=== PATIENT | male | born 1945 | race Caucasian/White ===

== ENCOUNTER 2025-06-04 12:24 | Emergency (ER) | payer MEDICARE, OTHER, SELFPAY ==
[2025-06-04 12:31] VITALS: BP 138/71
[2025-06-04 12:32] VITALS: BP 138/71
[2025-06-04 12:35] VITALS: BMI 26.0
[2025-06-04 13:00] VITALS: BP 145/54
[2025-06-04 13:13] LABS: Hematocrit 46.6 % (39.0-52.0); Hemoglobin 15.7 g/dL (13.0-18.0); Mean Corp Hgb Conc. 33.7 g/dL (33.0-37.0); Mean Corpuscular Volume 93.8 fL (80.0-94.0); Nucleated Red Blood Cells % 0 % (-); Platelet Count 135 10^3/uL (130-400); Red Cell Dist. Width 13.9 % (11.5-14.5)
[2025-06-04 13:14] LABS: ALT (SGPT) 16 U/L (0-50); AST (SGOT) 20 U/L (17-59); Albumin 3.8 g/dl (3.5-5.0); Alkaline Phosphatase 68 U/L (38-126); Blood Urea Nitrogen 7 mg/dl (9-20); Calcium 9.0 mg/dl (8.4-10.2); Carbon Dioxide 33 mmol/L (22-30); Chloride 100 mmol/L (98-107); Estimated Creatinine Clearance 111 ml/min; Glucose 152 mg/dl (70-99); Potassium 4.3 mmol/L (3.5-5.1); Sodium 135 mmol/L (135-145); Total Protein 7.3 g/dl (6.3-8.2); eGFR > 60.00
[2025-06-04 13:18] LABS: Troponin I < 0.012 ng/ml
--- NOTE | 2025-06-04 13:47 | ED.GENMED ---
History of Present Illness
General
Chief Complaint: Swelling
Source: patient and spouse
Exam Limitations: none
Time Seen by Provider: 06/04/25 13:32
Nursing documentation reviewed up to this point in time: agreed with
History of Present Illness
History of Present Illness:
80 yo male w h/o paraplegia after skiing accident 2013, colostomy, suprapubic catheter, cholecystectomy presents for worsening swelling of both feet and lower legs over past month. [facility] and over past month has been given Lasix 40 mg
for 3 days only on two separate occasions. Since swelling persists, sent here to r/o CHF, fluid overload. Pt denies CP, , abdominal pain. Has developed a cough past month with inability to 'cough it up' as he usually can. Denies fever/chills.
Denies n/v/d/c.
Past History
Past History
ED Past Medical History: Other (quadriplegia )
ED Past Surgical History: Cholecystectomy, Urological (suprapubic catheter) and Other (colostomy)
Social History
Tobacco: Non-smoker
Alcohol: None
Personal:
Living: with family
Review of Systems
Review of Systems
Allergies reviewed?: Yes
All Other Systems: ROS reviewed and negative except as documented in HPI and ROS
Phy Exam
Physical Exam
Physical Exam:
GENERAL: No acute distress. A&Ox3.
CONSTITUTIONAL: Afebrile.
EYES: clear, conjunctivae normal
ENMT: moist mucus membranes, Pharynx nl
RESPIRATORY: Regular respirations, nonlabored, lungs with coarse junky sounds that clear when pt coughs.
CARDIOVASCULAR: Regular rate and rhythm, no murmurs, no rubs.
GI: Soft, nontender, normal BS
MUSCULOSKELETAL: +3 pitting edema both feet, +1 pitting edema both lower legs. Arms puffy from dependent edema.
SKIN: Warm, dry, pale
PSYCH: Normal mood and affect. Well kept, interactive and appropriate
NEUROLOGIC: Awake, alert and oriented. Quadriplegic.
Scores
Heart Failure Risk
Heart Failure Risk Score: Not Applicable
Course
Orders/Labs/Results
Orders:
Orders
06/04/25 12:33
Electrocardiogram (*1) Urgent
Reason for Study: Chest Pain
Cardiac Monitoring- Treatment ONCE
EKG- Treatment ONCE
IV Insert/Care/Rem.- Treatment PRN
O2 Therapy [RESP] Urgent
Titrate/Wean O2 to maintain O2 sat greater than (%): 90
Special Instructions: Maintain sats >/=90%
Pulse Ox/spot Check [RESP] Urgent
Quantity: 1
Special Instructions: ON ROOM AIR
06/04/25 12:41
Complete Blood Count/With Diff Urgent
Comprehensive Metabolic Panel Urgent
NT-proBNP Urgent
Comment: ADD ON
Troponin I Urgent
06/04/25 13:47
Add On- LAB Urgent
Tests Added?: BNP
CR Chest Portable - 1 View Urgent
Comment:
Reason For Exam: swelling legs
Reason Study Needs to be Portable: Unable to Transport
Abnormal Lab Results
06/04/25
12:41
WBC 12.1 H 10^3/uL
(4.8-10.8)
MCH 31.6 H pg
(27.0-31.0)
MPV 11.1 H fL
(7.4-10.4)
Abs Immat Gran (auto) 0.1 H 10^3/uL
(0-0.05)
Absolute Neuts (auto) 9.7 H 10^3/uL
(1.4-6.5)
Absolute Monos (auto) 0.7 H 10^3/uL
(0.1-0.6)
Neutrophils % 79.7 H %
(42.2-75.2)
Lymphocytes % 11.9 L %
(20.5-51.1)
Carbon Dioxide 33 H mmol/L
(22-30)
BUN 7 L mg/dl
(9-20)
Creatinine 0.4 L mg/dL
(0.7-1.3)
Glucose 152 H mg/dl
(70-99)
06/04/25 12:41
06/04/25 12:41
Vital Signs
Initial and Last Documented VS:
Initial Vital Signs
Pulse BP
85 138/71
06/04/25 12:31 06/04/25 12:31
Last Documented Vital Signs
Temp Pulse Resp BP Pulse Ox
98.8 F 62 18 151/60 93
06/04/25 12:32 06/04/25 16:30 06/04/25 16:30 06/04/25 16:00 06/04/25 16:30
MDM/Problems Addressed
Differential Diagnosis Includes:
CHF, dependent edema
MDM/Problems Addressed:
80 yo male w h/o paraplegia after skiing accident 2013, colostomy, suprapubic catheter, cholecystectomy presents for worsening swelling of both feet and lower legs over past month. [facility] and over past month has been given Lasix 40 mg
for 3 days only on two separate occasions. Since swelling persists, sent here to r/o CHF, fluid overload. Pt denies CP, , abdominal pain. Has developed a cough past month with inability to 'cough it up' as he usually can. Denies fever/chills.
Denies n/v/d/c.
CBC with mild leukocytosis
CMP: No clinically significant abnormality, albumin and protein normal at [facility] however pneumonia cannot be excluded and
Troponin normal
BNP 94.3
CXR radiology report read: IMPRESSION:
Mild elevation of the left hemidiaphragm with adjacent left basilar airspace opacities favored to represent atelectasis, however pneumonia cannot be excluded.
Most likely dependent edema from lack of moving.
Chest congestion clears with cough, has an automatic chest percussion machine she uses prn
Pt is stable for discharge, will f[facility].
*Pulse Oximetry
SaO2: 93
Oxygen Mode of Delivery: Room air
Patient hypoxic: no
*Critical Care Note
Total Time (30-74mins, 75-104mins- exclusive of procedures): Not Applicable
ED Attending Note
-
Portions of this chart may have been created with voice recognition software.� Occasional wrong word or��sound alike� substitutions may have occurred due to the inherent limitations of voice recognition software.
Discharge Plan
Departure
Patient Disposition: Home (Routine Discharge)
Date of Disposition: 06/04/25
Time of Disposition: 15:33
Patient with high blood pressure during this ER visit?: No
Condition: Fair
Discharge Problem:
Dependent edema
Instructions: Dependent Edema (DC)
Prescriptions:
No Action
furosemide [Lasix] 40 mg Tablet
40 mg PO DAILY
acetaminophen [Tylenol] 325 mg Tablet
650 mg PO Q6HPRN PRN (Reason: mild pain)
pot,sodium citrate-citric acid [Tricitrates] 550-500-334 mg/5 mL Solution
5 ml PO BID
Theragen Tablet
1 tab PO DAILY
potassium chloride 20 mEq/15 mL Liquid
10 meq PO DAILY
zinc sulfate 50 mg zinc (220 mg) Tablet
50 mg PO DAILY
ascorbic acid (vitamin C) [Vitamin C] 500 mg Tablet
500 mg PO DAILY
baclofen 10 mg Tablet
15 mg PO TID
calcium carbonate [Tums] 200 mg calcium (500 mg) Tablet,Chewable
200 mg PO DAILYPRN PRN (Reason: gerd)
vitamin B complex [B Complete] Tablet
1 tab PO DAILY
Santyl 250 unit/gram Ointment
1 applic TOPICAL DAILY
albuterol sulfate [ProAir HFA] 90 mcg/actuation Hfa Aerosol Inhaler
2 puff INHALATION R Q4HPRN PRN (Reason: sob)
diazepam [Valium] 5 mg Tablet
7.5 mg PO DAILY
duloxetine [Cymbalta] 20 mg Capsule,Delayed Release(Dr/Ec)
20 mg PO DAILY
pregabalin [Lyrica] 100 mg Capsule
100 mg PO TID
melatonin 5 mg Tablet
5 mg PO HS
bicalutamide 50 mg Tablet
50 mg PO DAILY
Medical Marijuana
1 tsp PO HSPRN PRN (Reason: sleep)
Referrals:
Your [place] primary care provider [Other] - Tomorrow
Activity Restrictions/Additional Instructions:
As we discussed, call [facility] tomorrow and update on today's visit
No sign of CHF, Pneumonia or infection.
This is probably dependent edema from lack of movement
Interventions
Interventions:
*Risk Screen - Suicide Last Done: 06/04/25 12:34
*General Assessment Last Done: 06/04/25 12:34
*Neglect/Abuse Screening Last Done: 06/04/25 12:34
*ED COVID-19 Vaccine History Last Done: 06/04/25 12:34
*ED Influenza Vaccine History Last Done: 06/04/25 12:34
[facility] Fall Risk Assessment Tool Last Done: 06/04/25 12:36
*Nursing Disposition Last Done: 06/04/25 16:57
ED- Cardiac Assessment Last Done: 06/04/25 12:43
ED- Pulmonary Assessment Last Done: 06/04/25 12:43
ED-Skin Assessment Last Done: 06/04/25 12:44
Discharge Date and Time
Discharge Date/Time: 06/04/25 16:57
Print Language: PAKISTANI
[2025-06-04 14:00] VITALS: BP 99/84
[2025-06-04 15:00] VITALS: BP 134/65
[2025-06-04 16:00] VITALS: BP 151/60
== END 2025-06-04 16:57 | disposition home or self-care (01) ==
LOC: EMR 12:24
PROVIDERS: EMERGENCY PHYSICIAN Emergency Medicine
DX: R60.0 Localized edema (principal); D72.829 Elevated white blood cell count, unspecified; G82.50 Quadriplegia, unspecified
CPT/HCPCS: 99284; 71045; 80053; 83880; 84484; 85025; 93005